=== PATIENT | female | born 1985 | race Two or more races ===

== ENCOUNTER 2019-01-18 16:11 | Emergency (ER) | payer OTHER ==
[~2019-01-18] VITALS: Ht 162.6 cm; Wt 82.1 kg
[2019-01-18 16:20] VITALS: BP 143/87
[2019-01-18] MEDS ORDERED: NKM (16:20)
--- NOTE | 2019-01-18 16:20 | NUR ---
ED Nurse Note: Patient ambulated to ER from home c/o Rt lower abdominal pain 12/26 and bright red blood spotting for a week. Patient is alert and oriented x4 and ambulatory. skin clean and intact. calm and cooperative. no acute distress noted at this time. pt reported that LMP was by 12/26/18.
--- NOTE | 2019-01-18 16:45 | NUR ---
ED Nurse Note: pt went down for US in stable condition.
[2019-01-18 16:51] LABS: APPEARANCE,URINE CLEAR; BILIRUBIN, URINE NEGATIVE (NEGATIVE); COLOR,URINE PALE YELLOW; GLUCOSE, URINE (UA) NEGATIVE (NEGATIVE); KETONES,URINE NEGATIVE (NEGATIVE); LEUKOCYTE ESTERASE ,URINE NEGATIVE (NEGATIVE); NITRITE,URINE NEGATIVE (NEGATIVE); PH,URINE 6 (4.5-8.0); PROTEIN,URINE NEGATIVE (NEGATIVE); UROBILINOGEN,URINE NORMAL MG/DL (0.0-1.0)
[2019-01-18] MEDS ORDERED: Lidocaine 2% Visc 15ml soln ORAL ONE (17:00)
[2019-01-18] MEDS ORDERED: Ketorolac 30mg Inj IV ONE (17:00)
[2019-01-18] MEDS ORDERED: Mylanta II UD 30ml ORAL ONE (17:00)
--- NOTE | 2019-01-18 17:51 | Diagnostic Imaging Report ---
Indication: Abdominal pain Technique: Oneil-scale and duplex images of the upper abdomen were obtained Comparison: none Findings: Gallbladder is unremarkable, without stones, wall thickening, nor pericholecystic fluid. Sonographic Knight's sign is negative. Common bile duct measures 2 mm in diameter. No intrahepatic biliary ductal dilatation. Liver demonstrates diffusely increased echogenicity, consistent with diffuse hepatocellular disease, most likely fatty change. Portal vein and hepatic veins are patent. Pancreas is unremarkable. Spleen is unremarkable. Left kidney measures 11 cm in length. Right kidney measures 10.6 cm length. Both kidneys demonstrate normal echogenicity. There is no hydronephrosis. No focal abnormality . Non-aneurysmal abdominal aorta . Impression: Liver demonstrates diffusely increased echogenicity, consistent with diffuse hepatocellular disease, most likely fatty change. Negative for gallstones, dilated ducts, or other acute or significant abnormality
[2019-01-18 17:55] LABS: BASOPHILS % (AUTO) 0.8 % (0.0-2.0); EOSINOPHILS % (AUTO) 1.4 % (0.0-3.0); HEMATOCRIT 36.9 % (37.0-47.0); HEMOGLOBIN 12.2 G/DL (12.0-16.0); LYMPHOCYTES % (AUTO) 28.5 % (20.0-45.0); MEAN CORPUSCULAR VOLUME 82 FL (80-99); MONOCYTES % (AUTO) 6.1 % (1.0-10.0); NEUTROPHILS % (AUTO) 63.2 % (45.0-75.0); PLATELET COUNT 356 K/UL (150-450); RED BLOOD COUNT 4.51 M/UL (4.20-5.40); RED CELL DISTRIBUTION WIDTH 11.1 % (11.6-14.8); WHITE BLOOD COUNT 9.7 K/UL (4.8-10.8)
[2019-01-18 17:56] LABS: ANION GAP 11 mmol/L (5-15); BLOOD UREA NITROGEN 8 mg/dL (7-18); CALCIUM 8.9 MG/DL (8.5-10.1); CARBON DIOXIDE 25 MMOL/L (21-32); CHLORIDE 103 MMOL/L (98-107); CREATININE 0.7 MG/DL (0.55-1.30); POTASSIUM 3.7 MMOL/L (3.5-5.1); SODIUM 139 MMOL/L (136-145)
[2019-01-18 18:00] LABS: ALANINE AMINOTRANSFERASE 21 U/L (12-78); ALBUMIN 3.9 G/DL (3.4-5.0); ALKALINE PHOSPHATASE 71 U/L (46-116); ASPARTATE AMINO TRANSFERASE 20 U/L (15-37); BILIRUBIN,TOTAL 0.3 MG/DL (0.2-1.0)
--- NOTE | 2019-01-18 18:29 | Diagnostic Imaging Report ---
US PELVIS: The uterus is normal in size. The endometrium is normal in thickness. The ovaries demonstrate vascular flow. Trace free fluid in the pelvis.
--- NOTE | 2019-01-18 18:34 | Emergency Room Report ---
History of Present Illness General Chief Complaint: Female Urogenital Problems Source: Patient Present Illness HPI 33-year-old female presents to the emergency department planing of 7 out of 10 severity lower pelvic pain with bilateral adnexal pain. Patient also reports 5 out of 10 severity right upper quadrant abdominal pain with tenderness. Patient states that symptoms have been ongoing x6 days. Patient denies fevers or chills she does report some nausea denies vomiting. Patient reports right upper quadrant pain is intermittent and on occasion worse after eating. Patient denies history of gastritis she denies blood in the stool or black tarry stools. Patient denies constipation or diarrhea. Denies previous abdominal surgeries or pelvic surgeries. Denies vaginal d/c other than spotting , denies hx of or suspicion for STI. Patient denies dysuria, hematuria, urinary frequency or suspicion of . Patient reports bright red vaginal bleeding she describes scant amount consistent with spotting however she states that she is not due for her. She is currently midcycle. Patient denies history of fibroids or ovarian cysts. Aggravating or relieving factors at this time. Patient states she has not tried any [id number] medications in attempt to relieve her symptoms. Patient denies regular alcohol intake or significant past medical history. Patient does report that she is 40 pounds overweight and does suffer from depression. Denies SI/HI or PSA's, Denies OD attempts. Allergies: Coded Allergies: No Known Allergies (Unverified , 01/18/19) Patient History Limited by: language barrier Past Medical History: see triage record Past Surgical History: none Pertinent Family History: none Last Menstrual Period: 12/28/18 Now: No - UNK : 3 Para: 2 Reviewed Nursing Documentation: PMH: Agreed; PSxH: Agreed Nursing Documentation-PMH Past Medical History: No History, Except For Review of Systems All Other Systems: negative except mentioned in HPI Physical Exam Vital Signs Date Time Temp Pulse Resp B/P (MAP) Pulse Ox O2 Delivery O2 Flow Rate FiO2 01/18/19 16:16 98.6 71 17 143/87 (105) 97 Room Air Sp02 EP Interpretation: reviewed, normal General Appearance: no apparent distress, alert, GCS 15, non-toxic Head: normocephalic, atraumatic Eyes: bilateral eye normal inspection, bilateral eye PERRL ENT: hearing grossly normal, normal voice Neck: full range of motion Respiratory: lungs clear, normal breath sounds, speaking full sentences Cardiovascular #1: regular rate, rhythm Gastrointestinal: normal bowel sounds, soft, no organomegaly, no peritonitis, non-distended, no guarding, other - RUQ TTP- MIld, negative blanco's sign, no rebound tenderness, bilateral adnexal ttp, no macburny's point ttp, Rectal: deferred Genitourinary: normal inspection, no CVA tenderness, other - bilateral adnexal ttp, right > left. Musculoskeletal: back normal, gait/station normal, normal range of motion, non- tender Neurologic: alert, oriented x3, responsive, motor strength/tone normal, sensory intact, speech normal, grossly normal Psychiatric: judgement/insight normal Skin: no rash Lymphatic: no adenopathy Medical Decision Making PA Attestation Dr. Ch Is my supervising Physician whom patient management has been discussed with. Diagnostic Impression: Primary Impression: Abdominal pain Qualified Codes: R10.11 - Right upper quadrant pain Additional Impression: Ovarian cyst Qualified Codes: N83.201 - Unspecified ovarian cyst, right side; N83.202 - Unspecified ovarian cyst, left side ER Course 33-year-old female presents to the emergency department planing of 7 out of 10 severity lower pelvic pain with bilateral adnexal pain. Patient also reports 5 out of 10 severity right upper quadrant abdominal pain with tenderness. Patient states that symptoms have been ongoing x6 days. Patient denies fevers or chills she does report some nausea denies vomiting. Patient reports right upper quadrant pain is intermittent and on occasion worse after eating. Patient denies history of gastritis she denies blood in the stool or black tarry stools. Patient denies constipation or diarrhea. Denies previous abdominal surgeries or pelvic surgeries. Denies vaginal d/c other than spotting , denies hx of or suspicion for STI. Patient denies dysuria, hematuria, urinary frequency or suspicion of . Patient reports bright red vaginal bleeding she describes scant amount consistent with spotting however she states that she is not due for her. She is currently midcycle. Patient denies history of fibroids or ovarian cysts. Aggravating or relieving factors at this time. Patient states she has not tried any [id number]-[id number] medications in attempt to relieve her symptoms. Patient denies regular alcohol intake or significant past medical history. Patient does report that she is 40 pounds overweight and does suffer from depression. Denies SI/HI or PSA's, Denies OD attempts. Ddx considered but are not limited to Diverticulitis, acute appy, diarrhea,UC, PUD, GE, pancreatitis, gallstone, ovarian torsion, ectopic , PID tubo-ovarian abscess. Torsion just to name a few. Vital signs: are WNL, pt. is afebrile H&PE are most consistent with possible gallbladder/liver etiology and possible ovarian cysts, non-toxic in appearance, NAD. will r/o . no PE evidence to suggest acute abdomen. ORDERS: -CBC, CMP, LIPASE: WNL -UA: WNL / unremarkable -URINE HCG: Negative - US Pelvic and Abdominal complete: bilateral ovarian cysts, small amount of pelvic free fluid, no torsion, abdominal ultrasound shows increased echogenicity of the liver all other abdominal organs are within normal limits no positive CBD or SMS.--Per official radiology report- Please see report for specific details. ED INTERVENTIONS: -- IV zofran 4mg. -1 Liter NS - Toradol IV -Pepcid PO -lidocaine PO -Mylanta PO -I do not identify an emergent condition at this time. With current presentation , pt. is stable for close outpatient follow up and conservative treatment. D/ w pt. to return promptly to ED with worsening or new symptoms.- Pt. verbalizes' understanding and agreement with proposed treatment plan. DISCHARGE: At this time pt. is stable for d/c to home. Will provide printed patient care instructions, and any necessary prescriptions. Care plan and follow up instructions have been discussed with the patient prior to discharge. Labs Test 01/18/19 16:30 01/18/19 16:45 Urine Color Pale yellow Urine Appearance Clear Urine pH 6 (4.5-8.0) Urine Specific Royal 1.010 (1.005-1.035) Urine Protein Negative (NEGATIVE) Urine Glucose (UA) Negative (NEGATIVE) Urine Ketones Negative (NEGATIVE) Urine Blood 5+ (NEGATIVE) Urine Nitrite Negative (NEGATIVE) Urine Bilirubin Negative (NEGATIVE) Urine Urobilinogen Normal MG/DL (0.0-1.0) Urine Leukocyte Esterase Negative (NEGATIVE) Urine RBC 2-4 /HPF (0 - 2) Urine WBC 0-2 /HPF (0 - 2) Urine Squamous Epithelial Cells Few /LPF (NONE/OCC) Urine Bacteria Few /HPF (NONE) Urine HCG, Qualitative Negative (NEGATIVE) White Blood Count 9.7 K/UL (4.8-10.8) Red Blood Count 4.51 M/UL (4.20-5.40) Hemoglobin 12.2 G/DL (12.0-16.0) Hematocrit 36.9 % (37.0-47.0) Mean Corpuscular Volume 82 FL (80-99) Mean Corpuscular Hemoglobin 27.1 PG (27.0-31.0) Mean Corpuscular Hemoglobin Concent 33.1 G/DL (32.0-36.0) Red Cell Distribution Width 11.1 % (11.6-14.8) Platelet Count 356 K/UL (150-450) Mean Platelet Volume 6.0 FL (6.5-10.1) Neutrophils (%) (Auto) 63.2 % (45.0-75.0) Lymphocytes (%) (Auto) 28.5 % (20.0-45.0) Monocytes (%) (Auto) 6.1 % (1.0-10.0) Eosinophils (%) (Auto) 1.4 % (0.0-3.0) Basophils (%) (Auto) 0.8 % (0.0-2.0) Sodium Level 139 MMOL/L (136-145) Potassium Level 3.7 MMOL/L (3.5-5.1) Chloride Level 103 MMOL/L (98-107) Carbon Dioxide Level 25 MMOL/L (21-32) Anion Gap 11 mmol/L (5-15) Blood Urea Nitrogen 8 mg/dL (7-18) Creatinine 0.7 MG/DL (0.55-1.30) Estimat Glomerular Filtration Rate > 60 mL/min (>60) Glucose Level 88 MG/DL (74-106) Calcium Level 8.9 MG/DL (8.5-10.1) Total Bilirubin 0.3 MG/DL (0.2-1.0) Aspartate Amino Transf (AST/SGOT) 20 U/L (15-37) Alanine Aminotransferase (ALT/SGPT) 21 U/L (12-78) Alkaline Phosphatase 71 U/L (46-116) Total Protein 7.7 G/DL (6.4-8.2) Albumin 3.9 G/DL (3.4-5.0) Globulin 3.8 g/dL Albumin/Globulin Ratio 1.0 (1.0-2.7) Lipase 165 U/L (73-393) CT/MRI/US Diagnostic Results CT/MRI/US Diagnostic Results #1: Imaging Test Ordered: US Pelvic Impression " bilateral ovarian cysts, small amount of pelvic free fluid, no torsion."-- Per official radiology report- Please see report for specific details. CT/MRI/US Diagnostic Results #2: Imaging Test Ordered: Abdominal Complete US Impression "abdominal ultrasound shows increased echogenicity of the liver all other abdominal organs are within normal limits no positive CBD or SMS." --Per official radiology report- Please see report for specific details. Last Vital Signs Date Time Temp Pulse Resp B/P (MAP) Pulse Ox O2 Delivery O2 Flow Rate FiO2 01/18/19 17:37 98.6 01/18/19 16:20 71 17 143/87 97 Room Air Status: improved Disposition: HOME, SELF-CARE Condition: Stable Scripts Ranitidine Hcl* (ZANTAC*) 150 Mg Tablet 150 MG ORAL TWICE A DAY for 14 Days, #28 TAB Prov: Kinga Ngo 01/18/19 Naproxen* (NAPROXEN*) 500 Mg Tablet 500 MG ORAL TWICE A DAY for 10 Days, #20 TAB Prov: Kinga Ngo 01/18/19 Patient Instructions: Nonalcoholic Fatty Liver Disease Diet, Ovarian Cyst, Easy -to-Read Additional Instructions: Take medications as directed. Follow up with a Primary Care Provider and [facility] in 3-5 days, even if your symptoms have resolved. --Please review list of primary care clinics, if you do not already have a primary care provider Return sooner to ED if new symptoms occur, or current symptoms become worse. - Please note that this Emergency Department Report was dictated using [email or web address] test engineer technology software, occasionally this can lead to erroneous entry secondary to interpretation by the dictation equipment. Kinga Ngo Jan 18, 2019 18:34
[2019-01-18] MEDS ORDERED: NAPROXEN500 M2 ORAL (18:45)
[2019-01-18] MEDS ORDERED: ZANTAC150 MG ORAL (18:45)
[2019-01-18 18:56] VITALS: BP 135/79
--- NOTE | 2019-01-18 18:57 | NUR ---
ER DISCHARGE NOTE: Patient is cleared to be discharged per ERPA, pt is aox4, on room air, with stable vital signs. pt was given dc and prescription instructions, pt was able to verbalize understanding, pt id band and iv site removed without complications. pt is able to ambulate with steady gait. pt took all belongings.
== END 2019-01-18 18:56 | disposition home or self-care (01) ==
LOC: EMR 18:34
DX: R10.11 Right upper quadrant pain (principal); N83.202 Unspecified ovarian cyst, left side; N83.201 Unspecified ovarian cyst, right side
CPT/HCPCS: 36415; 76700; 76830; 76856; 80053; 81003; 81025; 83690; 85025; 96361; 96374; 96375; 99284; J1885; J2405